=== PATIENT | female | born 1990 | race Two or more races ===

== ENCOUNTER 2024-01-31 11:03 | Emergency (ER) | payer OTHER ==
[~2024-01-31] VITALS: Ht 154.9 cm; Wt 65.8 kg
[2024-01-31] MEDS ORDERED: ACETAMINOPHEN 500 MG GEL..CAP PO ONE ×2 (12:15→12:59)
[2024-01-31 13:52] LABS: PH,URINE 7.5 (5.0-8.0); URINE APPEARANCE Clear; URINE BILIRRUBIN Negative (NEGATIVE); URINE BLOOD Trace; URINE COLOR Yellow; URINE GLUCOSE Negative (NEGATIVE); URINE KETONE Negative (NEGATIVE); URINE LEUKOCYTE Moderate; URINE NITRATE Negative; URINE PROTEIN Negative (NEGATIVE); URINE UROBILINOGEN 0.2 E.U./dl
[2024-01-31 13:56] LABS: URINE BACTERIA 95.6 uL (0.0-1933); URINE EPITHELIAL CELLS 8.6 uL (0.0-38.8)
== END 2024-01-31 15:50 | disposition home or self-care (01) ==
LOC: ER 11:04
PROVIDERS: General Practice
DX: R30.0 Dysuria (principal); Z88.2 Allergy status to sulfonamides; Z20.822 Contact with and (suspected) exposure to COVID-19